=== PATIENT | female | born 1975 | race Caucasian/White ===

== ENCOUNTER 2018-12-14 08:01 | Day surgery (SDC) | payer OTHER ==
[~2018-12-14] VITALS: Ht 167.6 cm; Wt 76.2 kg
[2018-12-14] MEDS ORDERED: fentaNYL 0.05 MG/ML VIAL ONE (10:20)
[2018-12-14] MEDS ORDERED: MIDAZOLAM 2 MG/2 ML VIAL ONE (10:20)
[2018-12-14] MEDS ORDERED: LIDOCAINE 2% 100 MG/5 ML UJET TP ONE (10:52)
[2018-12-14] MEDS ORDERED: MIDAZOLAM 2 MG/2 ML VIAL IVP ONE (15:25)
[2018-12-14] MEDS ORDERED: fentaNYL 0.05 MG/ML VIAL IVP ONE (15:25)
[2018-12-14] MEDS ORDERED: fentaNYL 0.05 MG/ML VIAL IVP SCH (15:30)
[2018-12-14] MEDS ORDERED: MIDAZOLAM 2 MG/2 ML VIAL IVP SCH (15:45)
== END 2018-12-14 11:46 | disposition home or self-care (01) ==
LOC: MDS 08:01 → MMU 08:02 → MDS 11:46
PROVIDERS: ATTEND Internal Medicine Gastroenterology
DX: Z12.11 Encounter for screening for malignant neoplasm of colon (principal); D12.3 Benign neoplasm of transverse colon; K21.0 Gastro-esophageal reflux disease with esophagitis; K29.70 Gastritis, unspecified, without bleeding; K44.9 Diaphragmatic hernia without obstruction or gangrene; F41.9 Anxiety disorder, unspecified; E06.3 Autoimmune thyroiditis; Z80.0 Family history of malignant neoplasm of digestive organs
CPT/HCPCS: 36415; 43239; 45385; 81025; 86677; J2250; J3010; J7120